=== PATIENT | female | born 1995 | race Caucasian/White ===

== ENCOUNTER 2017-06-26 19:02 | Emergency (ER) | payer OTHER ==
[2017-06-26 19:06] VITALS: BP 128/72; PULSE 91; RESP 18; TEMP 96.9
--- NOTE | 2017-06-26 19:47 | XR ---
EXAMINATION TYPE: XR wrist complete LT DATE OF EXAM: 06/26/2017 COMPARISON: NONE HISTORY: 22 year-old female left navicular pain after fall one week ago TECHNIQUE: 4 views FINDINGS: There is negative ulnar variance with some slight bony remodeling along the notch of the distal radia l ulnar joint. Soft tissue swelling about the wrist. No acute fracture,. There is borderline widening at the scapholunate interval. IMPRESSION: 1. Borderline widening at the scapholunate interval on the ulnar deviation view. Correlate for possib le sprain of the scapholunate ligament. 2. Soft tissue swelling about the wrist without acute osseous abnormality seen. 3. Negative ulnar variance with possible ulnar impingement syndrome.
--- NOTE | 2017-06-26 20:01 | ED ---
Upper Extremity HPI - General Chief Complaint: Extremity Injury, Upper Stated Complaint: left hand pain Time Seen by Provider: 06/26/17 19:24 Source: patient Mode of arrival: ambulatory Limitations: no limitations - History of Present Illness Initial Comments: 22-year-old female patient presents to emergency department today for evaluation of left wrist and hand pain. Patient states that one week ago she was pushing a bread cart at work when she tripped and stumbled multiple times wrenching and injuring her wrist. Patient denies any fall, hitting her head, or losing consciousness. Patient states that whenever she moves her hand she does have pain that radiates into the left thumb, left first finger, and left third finger. Patient denies any numbness or tingling to the hand or fingers. She denies any swelling, redness, fever, chills, or any other symptoms. Denies limitations in range of motion. - Related Data Home Medications Medication Instructions Recorded Confirmed No Known Home Medications [No 06/26/17 06/26/17 Known Home Medications] Allergies Allergy/AdvReac Type Severity Reaction Status Date / Time amoxicillin AdvReac Vertigo Verified 06/26/17 19:14 Review of Systems ROS Statement: Those systems with pertinent positive or pertinent negative responses have been documented in the HPI. ROS Other: All systems not noted in ROS Statement are negative. Past Medical History Past Medical History: No Reported History History of Any Multi-Drug Resistant Organisms: None Reported Past Surgical History: No Surgical Hx Reported Past Psychological History: No Psychological Hx Reported Smoking Status: Never smoker Past Alcohol Use History: None Reported Past Drug Use History: None Reported General Exam Limitations: no limitations General appearance: alert, in no apparent distress Head exam: Present: atraumatic, normocephalic, normal inspection Respiratory exam: Present: normal lung sounds bilaterally. Absent: respiratory distress, wheezes, rales, rhonchi, stridor Cardiovascular Exam: Present: regular rate, normal rhythm, normal heart sounds. Absent: systolic murmur, diastolic murmur, rubs, gallop, clicks Extremities exam: Present: normal inspection, full ROM, tenderness (Tenderness over the first metacarpal, second metacarpal, and anatomical snuffbox on the left hand. Skin is pink, warm, and dry. Cap refill is less than 3 seconds. Radial pulse is intact and equal to the right.), normal capillary refill Neurological exam: Present: alert, oriented X3, CN II-XII intact Psychiatric exam: Present: normal affect, normal mood Skin exam: Present: warm, dry, intact, normal color. Absent: rash Course Vital Signs 06/26/17 19:04 Temperature 96.9 F L Pulse Rate 91 Respiratory 18 Rate Blood Pressure 128/72 O2 Sat by Pulse 98 Oximetry Procedures - Orthopedic Splinting/Casting Injury #1 Side: left Upper Extremity Injury Location: wrist Upper Extremity Immobilizer: thumb spica, Jermaine wrap Additional Comments: Patient neurovascular status intact after placement of the splint. Skin pink, warm, and dry. Cap refill less than 3 seconds. Patient denies any numbness or tingling. Medical Decision Making - Medical Decision Making 22-year-old female patient presented to emergency department today for evaluation of left wrist injury. Physical exam did reveal some tenderness over the anatomical snuffbox as well as the first second and third metacarpals. X- ray was obtained and did show some widening at the scapholunate joint, as well as some soft tissue swelling around the wrist. Patient was placed in a thumb spica OCL splint. Instructions to leave splint in place until she follows up with orthopedics. Neurovascular status intact after OCL placement. Patient given copies of the x-rays to take with her to her appointment. The patient instructed to follow up with primary care physician in one to 2 days for recheck. Patient instructed to return immediately for any new, worsening, or concerning symptoms. - Radiology Data Radiology results: report reviewed, image reviewed 4 view x-ray of the left wrist were obtained and showed negative ulnar variance with some slight bony remodeling along the notch of the distal radial ulnar joint. Soft tissue swelling about the wrist. No acute fracture. There is borderline widening of the scapholunate interval. Impression by Dr. Fierro states Boline widening at the scapholunate interval on the ulnar deviation view. Correlate for possible sprain of the scapholunate ligament. Soft tissue swelling about the wrist without acute osseous abnormalities seen. Negative ulnar variance with possible ulnar impingement syndrome. Disposition Clinical Impression: Wrist injury Disposition: HOME SELF-CARE Condition: Good Instructions: Wrist Injury (ED) Additional Instructions: Keep splint in place until follow-up with orthopedic doctor. Call on Wednesday to make an appointment with orthopedics. Take [id number] Tylenol for pain control. Follow up with primary care physician 1-2 days for recheck. Return for any new, worsening, or concerning symptoms. Referrals: None,Stated [Primary Care Provider] - 1-2 days Ananda Sherman DO [Doctor of Osteopathic Medicine] - 1-2 days Time of Disposition: 20:01
== END 2017-06-26 20:17 | disposition home or self-care (01) ==
LOC: EC 19:02
DX: S69.92XA Unspecified injury of left wrist, hand and finger(s), initial encounter (principal); W18.49XA Other slipping, tripping and stumbling without falling, initial encounter; Z88.0 Allergy status to penicillin; Y93.89 Activity, other specified; Y99.0 Civilian activity done for income or pay; Y92.69 Other specified industrial and construction area as the place of occurrence of the external cause
CPT/HCPCS: 29125; 99283